=== PATIENT | female | born 1975 | race Two or more races ===

== ENCOUNTER 2022-01-17 00:45 | Inpatient (IN) | payer BC ==
[2022-01-17] VITALS (11 sets, daily range): BP systolic 146–193; BP diastolic 84–107
[~2022-01-17] VITALS: Ht 149.9 cm; Wt 83.7 kg
[2022-01-17 01:20] LABS: EOSINOPHILS % (AUTO) 3.1 % (1.0-6.0); HEMATOCRIT 37.5 % (36-46); HEMOGLOBIN 12.1 g/dL (12.0-16.0); LYMPHOCYTES # (AUTO) 2.1 K/uL (1.0-4.8); LYMPHOCYTES % (AUTO) 26.4 % (22.0-44.0); MEAN CORPUSCULAR HEMOGLOBIN 25.1 pg (26.0-34.0); MEAN CORPUSCULAR HGB CONC 32.3 G/dL (31.0-37.0); MEAN CORPUSCULAR VOLUME 78 fL (80-100); MONOCYTES # (AUTO) 0.5 K/uL (0.1-1.0); MONOCYTES % (AUTO) 5.7 % (2.0-9.0); NEUTROPHILS # (AUTO) 5.1 K/uL (1.8-7.7); NEUTROPHILS % (AUTO) 63.8 % (40.0-70.0); PLATELET COUNT (AUTO) 210 K/uL (150-450); RED CELL DISTRIBUTION WIDTH 17.5 % (11.5-14.5)
[2022-01-17 01:22] LABS: COVID AG,FIA SOURCE NASAL SWAB
[2022-01-17 01:59] LABS: ALANINE AMINOTRANSFERASE 23 U/L (12-78); ALBUMIN 3.9 g/dL (3.4-5.0); ALKALINE PHOSPHATASE 60 U/L (46-116); ANION GAP 13 mmol/L (8-16); ASPARTATE AMINOTRANSFERASE 17 U/L (15-37); BILIRUBIN,TOTAL 0.1 mg/dL (0.1-1.0); CALCIUM, TOTAL 8.7 mg/dL (8.8-10.5); CARBON DIOXIDE 24 mmol/L (22-29); CHLORIDE 101 mmol/L (98-107); CREATININE 0.95 mg/dL (0.60-1.30); GLOMERULAR FILTR. RATE CALC > 60 mL/min (>60); GLUCOSE,RANDOM 133 mg/dL (70-110); HCG,QUANTITATIVE < 1 mIU/mL (0-6); SODIUM SERUM 138 mmol/L (136-145); TOTAL PROTEIN, SERUM 8.9 g/dL (6.4-8.2); UREA NITROGEN, BLOOD 13 mg/dL (7-18)
[2022-01-17 02:27] LABS: AMPHET/METH SCREEN,URINE NEGATIVE (NEGATIVE); BARBITURATE SCREEN, URINE NEGATIVE (NEGATIVE); BENZODIAZEPINES SCREEN,URINE NEGATIVE (NEGATIVE); CANNABINOID SCREEN,URINE NEGATIVE (NEGATIVE); COCAINE SCREEN,URINE NEGATIVE (NEGATIVE); METHADONE SCREEN, URINE NEGATIVE (NEGATIVE); OPIATE SCREEN,URINE NEGATIVE (NEGATIVE)
[2022-01-17 02:31] LABS: PHENCYCLIDINE SCREEN,URINE NEGATIVE (NEGATIVE)
[2022-01-17] MEDS ORDERED: ZOLPIDEM TARTRATE 10 MG TABLET PO PRN (03:00)
[2022-01-17] MEDS ORDERED: LORazepam 2 MG TABLET PO PRN (03:00)
[2022-01-17] MEDS ORDERED: OLANZapine 5 MG RAPDIS TABLET PO PRN (03:00)
[2022-01-17 03:24] LABS: APPEARANCE,URINE CLEAR (CLEAR); BILIRUBIN,URINE NEGATIVE (NEGATIVE); GLUCOSE, URINE (UA) NEGATIVE (NEGATIVE); KETONES,URINE TRACE mg/dL (NEGATIVE); LEUKOCYTE ESTERASE ,URINE NEGATIVE (NEGATIVE); NITRATE,URINE NEGATIVE (NEGATIVE); OCCULT BLOOD,URINE NEGATIVE (NEGATIVE); PH,URINE 5.5 (5.0-8.0); PROTEIN,URINE 30-70 mg/dL (NEGATIVE); SPECIFIC GRAVITIY, URINE 1.006 (1.003-1.030); UROBILINOGEN,URINE <=1.0 mg/dL (<=1.0)
[2022-01-17] MEDS ORDERED: TUBERCULIN, PURIFIED PROTEIN DERIVATIVE 5 TU/0.1 ML SYRINGE ID ONE (09:30)
[2022-01-17] MEDS ORDERED: DULoxetine HCL 20 MG CAPSULE PO ONE (09:30)
[2022-01-17] MEDS ORDERED: GuaiFENesin/D-METHORPHAN [SUGAR-FREE] 200-20MG/10 ML SYRUP UDCUP PO PRN (09:30)
[2022-01-17] MEDS ORDERED: LOPERAMIDE HCL 2 MG CAPSULE PO PRN (09:30)
[2022-01-17] MEDS ORDERED: MAG HYDROX/AL HYDROX/SIMETH ES 30 ML SUSPENSION UDCUP PO PRN (09:30)
[2022-01-17] MEDS ORDERED: HydrOXYzine PAMOATE 50 MG CAPSULE PO PRN (09:30)
[2022-01-17] MEDS ORDERED: PROMETHAZINE HCL 25 MG TABLET PO PRN (09:30)
[2022-01-17] MEDS ORDERED: ACETAMINOPHEN 325 MG TABLET PO PRN (09:30)
[2022-01-17] MEDS ORDERED: MAGNESIUM HYDROXIDE SUSPENSION 30 ML UDCUP PO PRN (09:30)
[2022-01-17] MEDS: AmLODIPine BESYLATE 5 MG TABLET PO SCH (12:58)
[2022-01-17] MEDS: THIAMINE 100 MG TABLET PO SCH (17:00)
[2022-01-17] MEDS: CloNIDine HCL 0.1 MG TABLET PO PRN (20:51)
[2022-01-17] MEDS: MELATONIN 5 MG TABLET PO SCH (20:51)
[2022-01-18] VITALS (10 sets, daily range): BP systolic 128–163; BP diastolic 71–96
[2022-01-18 07:49] LABS: CHOL/HDL RATIO 4.5 (3.9-5.7); FREE T4 (FREE THYROXINE) 0.8 ng/dL (0.76-1.46); THYROID STIMULATING HORMONE 4.99 uIU/mL (0.36-3.74)
[2022-01-18] MEDS: DULoxetine HCL 20 MG CAPSULE PO SCH (08:20)
[2022-01-18] MEDS: NALTREXONE HCL 50 MG TABLET PO SCH (08:20)
[2022-01-18] MEDS: THIAMINE 100 MG TABLET PO SCH ×2 (08:20→16:11)
[2022-01-18] MEDS: MULTIVITAMINS WITH MINERALS, THERAPEUTIC TABLET PO SCH (08:20)
[2022-01-18] MEDS: FOLIC ACID 1 MG TABLET PO SCH (08:20)
[2022-01-18] MEDS: AmLODIPine BESYLATE 5 MG TABLET PO SCH (08:20)
[2022-01-18] MEDS: OMEGA-3/DHA/EPA/FISH OIL 1,000 MG CAPSULE PO SCH (08:20)
[2022-01-18] MEDS: PANTOPRAZOLE SODIUM 40 MG DR TABLET PO SCH (08:20)
[2022-01-18] MEDS: CloNIDine HCL 0.1 MG TABLET PO PRN (09:51)
[2022-01-18] MEDS: HydrALAZINE HCL 25 MG TABLET PO PRN (15:05)
[2022-01-18] MEDS: MELATONIN 5 MG TABLET PO SCH (20:10)
[2022-01-19] VITALS (8 sets, daily range): BP systolic 137–162; BP diastolic 76–97
[2022-01-19 03:06] LABS: HEPATITIS C AB (EIA) <0.1 s/co ratio (0.0-0.9)
[2022-01-19] MEDS: HydrALAZINE HCL 25 MG TABLET PO PRN (05:48)
[2022-01-19] MEDS: AmLODIPine BESYLATE 5 MG TABLET PO SCH (08:33)
[2022-01-19] MEDS: OMEGA-3/DHA/EPA/FISH OIL 1,000 MG CAPSULE PO SCH (08:33)
[2022-01-19] MEDS: THIAMINE 100 MG TABLET PO SCH ×2 (08:33→16:10)
[2022-01-19] MEDS: DULoxetine HCL 20 MG CAPSULE PO SCH (08:33)
[2022-01-19] MEDS: PANTOPRAZOLE SODIUM 40 MG DR TABLET PO SCH (08:33)
[2022-01-19] MEDS: FOLIC ACID 1 MG TABLET PO SCH (08:33)
[2022-01-19] MEDS: NALTREXONE HCL 50 MG TABLET PO SCH (08:33)
[2022-01-19] MEDS: MULTIVITAMINS WITH MINERALS, THERAPEUTIC TABLET PO SCH (08:33)
[2022-01-19] MEDS ORDERED: NALT50TA PO (16:23)
[2022-01-19] MEDS ORDERED: DULO20CA71 PO (16:23)
[2022-01-19] MEDS ORDERED: MELA5TAB40 PO (16:23)
[2022-01-19] MEDS ORDERED: OMEG-108 PO (16:23)
[2022-01-19] MEDS: MELATONIN 5 MG TABLET PO SCH (20:23)
[2022-01-20 06:20] VITALS: BP 141/90
[2022-01-20 06:44] VITALS: BP 145/85
[2022-01-20] MEDS: THIAMINE 100 MG TABLET PO SCH (08:33)
[2022-01-20] MEDS: FOLIC ACID 1 MG TABLET PO SCH (08:33)
[2022-01-20] MEDS: PANTOPRAZOLE SODIUM 40 MG DR TABLET PO SCH (08:34)
[2022-01-20] MEDS: NALTREXONE HCL 50 MG TABLET PO SCH (08:34)
[2022-01-20] MEDS: OMEGA-3/DHA/EPA/FISH OIL 1,000 MG CAPSULE PO SCH (08:34)
[2022-01-20] MEDS: MULTIVITAMINS WITH MINERALS, THERAPEUTIC TABLET PO SCH (08:35)
[2022-01-20] MEDS ORDERED: AmLODIPine BESYLATE 10 MG TABLET PO SCH (09:00)
[2022-01-20] MEDS ORDERED: DULoxetine HCL 20 MG CAPSULE PO SCH (09:00)
[2022-01-20] MEDS ORDERED: AMLO-258 PO ×2 (09:55→12:41)
[2022-01-20] MEDS ORDERED: PANT-31 PO (09:56)
[2022-01-20 10:01] VITALS: BP 110/72
== END 2022-01-20 10:45 | disposition home or self-care (01) | DRG 885 ==
LOC: EMS 00:47 → B2S 03:11
PROVIDERS: ADMIT Psychiatry & Neurology Psychiatry; ATTEND Psychiatry & Neurology Psychiatry
DX: F33.2 Major depressive disorder, recurrent severe without psychotic features (principal); R45.851 Suicidal ideations; E03.8 Other specified hypothyroidism; E11.9 Type 2 diabetes mellitus without complications; E78.5 Hyperlipidemia, unspecified; F10.10 Alcohol abuse, uncomplicated; Z20.822 Contact with and (suspected) exposure to COVID-19; F41.0 Panic disorder [episodic paroxysmal anxiety]; I10 Essential (primary) hypertension; Y90.3 Blood alcohol level of 60-79 mg/100 ml; Z55.9 Problems related to education and literacy, unspecified; Z59.9 Problem related to housing and economic circumstances, unspecified; Z63.9 Problem related to primary support group, unspecified; Z65.3 Problems related to other legal circumstances; Z91.14 Patient's other noncompliance with medication regimen
CPT/HCPCS: 80053; 80061; 80074; 81003; 83036; 84439; 84443; 84702; 85025; 86592; 99285; G0480; Q9967